=== PATIENT | male | born 1985 | race African-American/Black ===

== ENCOUNTER 2017-06-28 14:27 | Emergency (ER) | payer OTHER ==
[~2017-06-28] VITALS: Ht 172.7 cm; Wt 55.0 kg
[~2017-06-28 14:27] MED LIST: DICL50 PO; IBUP800T23 PO; SULF-154 PO
[2017-06-28 15:03] VITALS: BP 164/105; PULSE 106; RESP 16; TEMP 97.8; O2SAT 97
--- NOTE | 2017-06-28 15:26 | PD ---
HPI Chief Complaint: Psychiatric Symptoms Time Seen by Provider: 15:20 Travel History International Travel<30 days: No Contact w/Intl Traveler<30days: No Traveled to known affect area: No History of Present Illness HPI 31-year-old male presents to the emergency department under Smith act for psychiatric evaluation. Patient states that he used Kaylyn in oral form. He believes it may have been laced with Flakka. He states he is very paranoid right now. He does not want to hurt himself or anybody else but he is scared that somebody is after him. He denies any recent illnesses. Denies any significant medical history. Has no other symptoms to report. PFSH Past Medical History Hx Anticoagulant Therapy: No Cardiovascular Problems: No Chemotherapy: No Cerebrovascular Accident: No Diabetes: No Respiratory: No ?: Not Past Surgical History Hysterectomy: No Social History Alcohol Use: Yes Tobacco Use: Yes (1/2 PACK DAY) Substance Use: No Allergies-Medications (Allergen,Severity, Reaction): Coded Allergies: No Known Allergies (Verified Adverse Reaction, Unknown, 06/28/17) Reported Meds & Prescriptions Reported Meds & Active Scripts Active Ibuprofen 800 Mg Tab 800 Mg PO TID PRN Voltaren (Diclofenac Sodium) 50 Mg Tabec 50 Mg PO TID Septra Ds (Trimethoprim/Sulfamethoxazole) Tab 1 Tab PO BID Review of Systems Except as stated in HPI: all other systems reviewed are Neg Physical Exam Narrative GENERAL: Thin male patient, ambulatory with bizarre affect but in no acute distress. SKIN: Focused skin assessment warm/dry. HEAD: Atraumatic. Normocephalic. EYES: Pupils equal and round. No scleral icterus. No injection or drainage. ENT: No nasal bleeding or discharge. Mucous membranes pink and moist. NECK: Trachea midline. No JVD. CARDIOVASCULAR: Tachycardic rate and rhythm. No murmur appreciated. RESPIRATORY: No accessory muscle use. Clear to auscultation. Breath sounds equal bilaterally. GASTROINTESTINAL: Abdomen soft, non-tender, nondistended. Hepatic and splenic margins not palpable. MUSCULOSKELETAL: No obvious deformities. No clubbing. No cyanosis. No edema. NEUROLOGICAL: Awake and alert. No obvious cranial nerve deficits. Motor grossly within normal limits. Normal speech. Data Data Last Documented VS Vital Signs Date Time Temp Pulse Resp B/P (MAP) Pulse Ox O2 Delivery O2 Flow Rate FiO2 2/24/18 17:04 96.8 87 14 133/75 (94) 99 Room Air Orders Orders Complete Blood Count With Diff (06/28/17 15:00) Comprehensive Metabolic Panel (06/28/17 15:00) Psych Screen (06/28/17 15:00) Drug Screen, Random Urine (06/28/17 15:00) Lorazepam Inj (Ativan Inj) (06/28/17 15:30) Restraints Violent (06/28/17 16:10) Diphenhydramine Inj (Benadryl Inj) (06/28/17 16:15) Diet Regular Basic (06/28/17 Dinner) Labs Laboratory Tests Test 06/28/17 14:58 White Blood Count 14.5 TH/MM3 Red Blood Count 5.35 MIL/MM3 Hemoglobin 16.2 GM/DL Hematocrit 47.7 % Mean Corpuscular Volume 89.0 FL Mean Corpuscular Hemoglobin 30.3 PG Mean Corpuscular Hemoglobin Concent 34.1 % Red Cell Distribution Width 13.6 % Platelet Count 168 TH/MM3 Mean Platelet Volume 10.5 FL Neutrophils (%) (Auto) 92.1 % Lymphocytes (%) (Auto) 2.5 % Monocytes (%) (Auto) 5.3 % Eosinophils (%) (Auto) 0.0 % Basophils (%) (Auto) 0.1 % Neutrophils # (Auto) 13.4 TH/MM3 Lymphocytes # (Auto) 0.4 TH/MM3 Monocytes # (Auto) 0.8 TH/MM3 Eosinophils # (Auto) 0.0 TH/MM3 Basophils # (Auto) 0.0 TH/MM3 CBC Comment DIFF FINAL Differential Comment Blood Urea Nitrogen 23 MG/DL Creatinine 1.33 MG/DL Random Glucose 144 MG/DL Total Protein 8.8 GM/DL Albumin 4.5 GM/DL Calcium Level 9.8 MG/DL Alkaline Phosphatase 126 U/L Aspartate Amino Transf (AST/SGOT) 27 U/L Alanine Aminotransferase (ALT/SGPT) 16 U/L Total Bilirubin 0.6 MG/DL Sodium Level 138 MEQ/L Potassium Level 3.6 MEQ/L Chloride Level 104 MEQ/L Carbon Dioxide Level 25.4 MEQ/L Anion Gap 9 MEQ/L Estimat Glomerular Filtration Rate 76 ML/MIN MDM Medical Decision Making Medical Screen Exam Complete: Yes Emergency Medical Condition: Yes Medical Record Reviewed: Yes Differential Diagnosis Polysubstance abuse versus acute psychosis versus mood disorder versus personality disorder Narrative Course 31-year-old male presents to emergency department under Smith act for psychiatric evaluation. Patient is cooperative however he is paranoid and is verbalizing concerned that somebody is after him. He did attempt to run out of the emergency department from these individuals that do not really exist. Patient was moved to the psychiatric pod. He was given Ativan prior to transfer. Lab work is still pending. 1605 I am contacted by staff and requested to place restraints on the patient as he is becoming aggressive toward staff and his risk of harming himself and others. Lab work is still not complete. I am uncertain if patient's renal function. I'll add 50 mg Benadryl IM to help medicate the patient and hopefully calm him down. Ocyk-in-[id number] exam completed at 1640 Patient demonstrates the need for violent restraints, demonstrating a risk of harming himself and others restraints are noted in place. Distal extremities remain neurovascularly intact. I have discussed removal criteria with the patient. He verbalizes understanding. Lab work has been reviewed. Patient does have some renal insufficiency. His venous 23. He is encouraged to take by mouth liquids. Laboratory Tests Test 06/28/17 14:58 White Blood Count 14.5 TH/MM3 Red Blood Count 5.35 MIL/MM3 Hemoglobin 16.2 GM/DL Hematocrit 47.7 % Mean Corpuscular Volume 89.0 FL Mean Corpuscular Hemoglobin 30.3 PG Mean Corpuscular Hemoglobin Concent 34.1 % Red Cell Distribution Width 13.6 % Platelet Count 168 TH/MM3 Mean Platelet Volume 10.5 FL Neutrophils (%) (Auto) 92.1 % Lymphocytes (%) (Auto) 2.5 % Monocytes (%) (Auto) 5.3 % Eosinophils (%) (Auto) 0.0 % Basophils (%) (Auto) 0.1 % Neutrophils # (Auto) 13.4 TH/MM3 Lymphocytes # (Auto) 0.4 TH/MM3 Monocytes # (Auto) 0.8 TH/MM3 Eosinophils # (Auto) 0.0 TH/MM3 Basophils # (Auto) 0.0 TH/MM3 CBC Comment DIFF FINAL Differential Comment Blood Urea Nitrogen 23 MG/DL Creatinine 1.33 MG/DL Random Glucose 144 MG/DL Total Protein 8.8 GM/DL Albumin 4.5 GM/DL Calcium Level 9.8 MG/DL Alkaline Phosphatase 126 U/L Aspartate Amino Transf (AST/SGOT) 27 U/L Alanine Aminotransferase (ALT/SGPT) 16 U/L Total Bilirubin 0.6 MG/DL Sodium Level 138 MEQ/L Potassium Level 3.6 MEQ/L Chloride Level 104 MEQ/L Carbon Dioxide Level 25.4 MEQ/L Anion Gap 9 MEQ/L Estimat Glomerular Filtration Rate 76 ML/MIN Patient is medically cleared to undergo psychiatric screening for further evaluation and disposition. Diagnosis Primary Impression: Acute psychosis Additional Impression: Polysubstance abuse Condition: Stable Jeanette Martinez Jun 28, 2017 15:26
[2017-06-28] MEDS ORDERED: LORazepam 2 MG/ML VIAL IM ONE (15:30)
[2017-06-28 15:37] LABS: AUTOMATED NEUTROPHIL # 13.4 TH/MM3 (1.8-7.7); BASOPHIL % 0.1 % (0.0-2.0); HEMATOCRIT 47.7 % (39.0-51.0); HEMOGLOBIN 16.2 GM/DL (13.0-17.0); LYMPH % 2.5 % (9.0-44.0); LYMPHOCYTE # 0.4 TH/MM3 (1.0-4.8); MEAN CORPUSCULAR HEMOGLOBIN 30.3 PG (27.0-34.0); MEAN CORPUSCULAR HGB CONC 34.1 % (32.0-36.0); MEAN PLATELET VOLUME 10.5 FL (7.0-11.0); MONO % 5.3 % (0.0-8.0); MONOCYTE # 0.8 TH/MM3 (0-0.9); NEUT % 92.1 % (16.0-70.0); PLATELET COUNT 168 TH/MM3 (150-450); RED BLOOD COUNT 5.35 MIL/MM3 (4.50-5.90); RED CELL DISTRIBUTION WIDTH 13.6 % (11.6-17.2); WHITE BLOOD COUNT 14.5 TH/MM3 (4.0-11.0)
[2017-06-28 15:57] VITALS: BP 156/111; PULSE 115; RESP 18; TEMP 97.4; O2SAT 97
[2017-06-28 15:57] LABS: ALKALINE PHOSPHATASE 126 U/L (45-117); TOTAL BILIRUBIN ADULT 0.6 MG/DL (0.2-1.0); TOTAL PROTEIN 8.8 GM/DL (6.4-8.2)
[2017-06-28 16:06] LABS: ALBUMIN 4.5 GM/DL (3.4-5.0); ALT (GPT) 16 U/L (12-78); AST (GOT) 27 U/L (15-37); BICARBONATE 25.4 MEQ/L (21.0-32.0); BLOOD UREA NITROGEN 23 MG/DL (7-18); CALCIUM 9.8 MG/DL (8.5-10.1); CHLORIDE 104 MEQ/L (98-107); CREATININE 1.33 MG/DL (0.60-1.30); GLOMERULAR FILTRATION RATE 76 ML/MIN (>89); GLUCOSE,RANDOM 144 MG/DL (74-106); SODIUM (NA) 138 MEQ/L (136-145)
[2017-06-28] MEDS ORDERED: diphenhydrAMINE HCL 50 MG/ML VIAL IM ONE (16:15)
[2017-06-28 17:04] VITALS: BP 133/75; PULSE 87; RESP 14; TEMP 96.8; O2SAT 99
[2017-06-28 22:53] VITALS: BP 109/63; PULSE 78; RESP 19; TEMP 98.6; O2SAT 100
[2017-06-29 03:12] VITALS: BP 130/57; PULSE 100; RESP 18; TEMP 98.2; O2SAT 99
[2017-06-29] MEDS ORDERED: LORazepam 2 MG/ML VIAL IM ONE (03:45)
[2017-06-29 06:57] VITALS: BP 112/58; PULSE 55; RESP 19; TEMP 98.4; O2SAT 99
--- NOTE | 2017-06-29 08:14 | HHI.PR ---
Subjective Remarks Endeavored to see pt for psychiatric evaluation. Per RN, patient agitated overnight and received Ativan IM. This morning, patient is sedated and unable to participate in psychiatric interview. He is breathing easily and in no acute distress. BA remains in place pending reassessment. Objective Labs Test 06/28/17 14:58 06/29/17 04:35 White Blood Count 14.5 TH/MM3 Red Blood Count 5.35 MIL/MM3 Hemoglobin 16.2 GM/DL Hematocrit 47.7 % Mean Corpuscular Volume 89.0 FL Mean Corpuscular Hemoglobin 30.3 PG Mean Corpuscular Hemoglobin Concent 34.1 % Red Cell Distribution Width 13.6 % Platelet Count 168 TH/MM3 Mean Platelet Volume 10.5 FL Neutrophils (%) (Auto) 92.1 % Lymphocytes (%) (Auto) 2.5 % Monocytes (%) (Auto) 5.3 % Eosinophils (%) (Auto) 0.0 % Basophils (%) (Auto) 0.1 % Neutrophils # (Auto) 13.4 TH/MM3 Lymphocytes # (Auto) 0.4 TH/MM3 Monocytes # (Auto) 0.8 TH/MM3 Eosinophils # (Auto) 0.0 TH/MM3 Basophils # (Auto) 0.0 TH/MM3 CBC Comment DIFF FINAL Differential Comment Blood Urea Nitrogen 23 MG/DL Creatinine 1.33 MG/DL Random Glucose 144 MG/DL Total Protein 8.8 GM/DL Albumin 4.5 GM/DL Calcium Level 9.8 MG/DL Alkaline Phosphatase 126 U/L Aspartate Amino Transf (AST/SGOT) 27 U/L Alanine Aminotransferase (ALT/SGPT) 16 U/L Total Bilirubin 0.6 MG/DL Sodium Level 138 MEQ/L Potassium Level 3.6 MEQ/L Chloride Level 104 MEQ/L Carbon Dioxide Level 25.4 MEQ/L Anion Gap 9 MEQ/L Estimat Glomerular Filtration Rate 76 ML/MIN Urine Opiates Screen NEG Urine Barbiturates Screen NEG Urine Amphetamines Screen NEG Urine Benzodiazepines Screen NEG Urine Cocaine Screen POS Urine Cannabinoids Screen POS Vitals/IOs Vital Signs Date Time Temp Pulse Resp B/P (MAP) Pulse Ox O2 Delivery O2 Flow Rate FiO2 06/29/17 06:57 98.4 55 19 112/58 (76) 99 Room Air Assessment & Plan Problem List: (1) Encounter for psychiatric assessment ICD Codes: Z76.89 - Persons encountering health services in other specified circumstances Assessment & Plan Estimated LOS: days Hardik Boateng MD Jun 29, 2017 08:14
[2017-06-29 11:35] VITALS: BP 117/70; PULSE 85; RESP 16; O2SAT 99
[2017-06-29 15:06] VITALS: BP 110/71; PULSE 84; RESP 16; O2SAT 98
[2017-06-29 18:43] VITALS: BP 107/61; PULSE 73; RESP 18; O2SAT 100
[2017-06-29 22:27] VITALS: RESP 18
[2017-06-30 06:16] VITALS: BP 137/59; PULSE 78; RESP 18; TEMP 98.2; O2SAT 100
--- NOTE | 2017-06-30 10:22 | PD ---
History of Present Illness Chief Complaint: Psychiatric Symptoms Time Seen by Provider: 10:00 Travel History International Travel<30 Days: No Contact w/Intl Traveler<30days: No Known affected area: No Legal Status Legal Status: Smith Act Smith Act Comment: Signed by [facility] Officer Ky Sandhu #[id number]. History of Present Illness: History of Present Illness HPI 31-year-old male with no previous psychiatric history and history of substance use disorder who presents to the emergency department under Smith act initiated by law enforcement. The Smith act alleges that the patient was acting in a strange manner and that he was afraid that somebody was after him. Patient admitted to ED staff states that he used Kaylyn in oral form and that he believes it may have been laced with Flakka. Patient required restraints on arrival to the ED due to him becoming aggressive towards staff. He also required ETO. The patient was monitored for extended period of time in the ED and slept for a majority of this time. Electronic medical record is reviewed. No previous contact with [facility] psychiatry. Patient is seen. Tk, case advocate present. Current toxicology is positive for cocaine and cannabinoids. Current toxicology is positive for cocaine and cannabinoids. Patient is alert, oriented, calm and cooperative.No psychosis and no chandler. No objective clinical symptoms of depression or anxiety His speech is clear, logical and goal-directed. He states" I took a drug I thought it was Kaylyn and then I freaked out. I feel fine now and I have to go to work." There is no suicidal or homicidal ideation, intent or plan. PFSH Past Medical History Medical History: Unable to Obtain Hx Anticoagulant Therapy: No Cardiovascular Problems: No Chemotherapy: No Cerebrovascular Accident: No Diabetes: No Respiratory: No ?: Not Past Surgical History Surgical History: Unable to Obtain Hysterectomy: No Psychiatric History Psychiatric History Hx Psychiatric Treatment: Patient denies psychiatric tx. No previous smith act. No hx of suicidal atempts. History of Inpatient Treatment: No Guns or firearms in home: No Social History Single male, originally from [place], lives with girlfriend. Has 3 children. Works in the food service team member industry. Hx Alcohol Use: Yes Hx Tobacco Use: Yes (1/2 PACK DAY) Hx Substance Use: Yes (Kaylyn & Flakka per pt.) Substance Use Type: Marijuana, Nicotine/Cigarettes, Cocaine, Other Hx of Substance Use Treatment: No Allergies-Medications (Allergen,Severity, Reaction): Coded Allergies: No Known Allergies (Verified Adverse Reaction, Unknown, 06/28/17) Reported Meds & Prescriptions Reported Meds & Active Scripts Active Review of Systems Psychiatric: DENIES: Anxiety, Confusion, Mood changes, Depression, Hallucinations, Agitation, Suicidal Ideation, Homicidal Ideation, Delusions Except as stated in HPI: all other systems reviewed are Neg Mental Status Examination Appearance: Appropriate, Disheveled Consciousness: Alert Orientation: x4 Motor Activity: Normal gait Speech: Unremarkable Language: Adequate Fund of Knowledge: Adequate Attention and Concentration: Adequate Memory: Unremarkable Mood: Appropriate Affect: Appropriate Thought Process & Associations: Intact, Logical, Goal directed Thought Content: Appropriate Hallucination Type: None Delusion Type: None Suicidal Ideation: No Suicidal Plan: No Suicidal Intention: No Homicidal Ideation: No Homicidal Plan: No Homicidal Intention: No Insight: Fair Judgment: Adequate MDM Medical Decision Making Medical Record Reviewed: Yes Assessment/Plan 31-year-old male with no previous psychiatric history who while under the influence of an unknown substance suspected to be Flakka became paranoid and was placed under Smith act by law enforcement. The patient presented to the ED agitated and verbalizing paranoid thoughts that he believed someone was after him. Patient required ETO. He was monitored here for extended period of time and was allowed to sleep. This morning the patient presents no symptoms of psychosis, no chandler, no paranoia, no suicidal or homicidal ideation. He is requesting to be discharged as he is worried over his job. At this time he presents no criteria under the Smith act and presents no evidence of unstable mental illness as defined under the Smith act. He is provided psychoeducation. Lift BA. Psychiatrically clear for discharge from ED. Orders Orders Diet Regular Basic (06/29/17 Lunch) Diet Regular Basic (06/29/17 Dinner) Diet Regular Basic (06/30/17 Breakfast) Results Vital Signs Date Time Temp Pulse Resp B/P (MAP) Pulse Ox O2 Delivery O2 Flow Rate FiO2 06/30/17 06:16 98.2 78 18 137/59 (85) 100 Room Air 06/29/17 22:27 18 06/29/17 18:43 73 18 107/61 (76) 100 Room Air 06/29/17 15:06 84 16 110/71 (84) 98 Room Air 06/29/17 11:35 85 16 117/70 (86) 99 Room Air Diagnosis Primary Impression: Substance-induced psychotic disorder Additional Impression: Polysubstance abuse Psychiatrically Cleared: Yes Med/ Other Pt Specific Info: No Meds Exist/No RX given Disposition: 01 DISCHARGE HOME Condition: Stable Problem Qualifiers Caro Hooper Jun 30, 2017 10:22
--- NOTE | 2017-06-30 11:04 | PD ---
Physical Exam Date Seen by Provider: Jun 30, 2017 Time Seen by Provider: 11:01 Data Data Last Documented VS Vital Signs Date Time Temp Pulse Resp B/P (MAP) Pulse Ox O2 Delivery O2 Flow Rate FiO2 06/30/17 06:16 98.2 78 18 137/59 (85) 100 Room Air Orders Orders Complete Blood Count With Diff (06/28/17 15:00) Comprehensive Metabolic Panel (06/28/17 15:00) Psych Screen (06/28/17 15:00) Drug Screen, Random Urine (06/28/17 15:00) Lorazepam Inj (Ativan Inj) (06/28/17 15:30) Restraints Violent (06/28/17 16:10) Diphenhydramine Inj (Benadryl Inj) (06/28/17 16:15) Diet Regular Basic (06/28/17 Dinner) Diet Regular Basic (06/29/17 Breakfast) Lorazepam Inj (Ativan Inj) (06/29/17 03:45) Diet Regular Basic (06/29/17 Lunch) Diet Regular Basic (06/29/17 Dinner) Diet Regular Basic (06/30/17 Breakfast) Ed Discharge Order (06/30/17 10:49) Labs Laboratory Tests Test 06/28/17 14:58 06/29/17 04:35 White Blood Count 14.5 TH/MM3 Red Blood Count 5.35 MIL/MM3 Hemoglobin 16.2 GM/DL Hematocrit 47.7 % Mean Corpuscular Volume 89.0 FL Mean Corpuscular Hemoglobin 30.3 PG Mean Corpuscular Hemoglobin Concent 34.1 % Red Cell Distribution Width 13.6 % Platelet Count 168 TH/MM3 Mean Platelet Volume 10.5 FL Neutrophils (%) (Auto) 92.1 % Lymphocytes (%) (Auto) 2.5 % Monocytes (%) (Auto) 5.3 % Eosinophils (%) (Auto) 0.0 % Basophils (%) (Auto) 0.1 % Neutrophils # (Auto) 13.4 TH/MM3 Lymphocytes # (Auto) 0.4 TH/MM3 Monocytes # (Auto) 0.8 TH/MM3 Eosinophils # (Auto) 0.0 TH/MM3 Basophils # (Auto) 0.0 TH/MM3 CBC Comment DIFF FINAL Differential Comment Blood Urea Nitrogen 23 MG/DL Creatinine 1.33 MG/DL Random Glucose 144 MG/DL Total Protein 8.8 GM/DL Albumin 4.5 GM/DL Calcium Level 9.8 MG/DL Alkaline Phosphatase 126 U/L Aspartate Amino Transf (AST/SGOT) 27 U/L Alanine Aminotransferase (ALT/SGPT) 16 U/L Total Bilirubin 0.6 MG/DL Sodium Level 138 MEQ/L Potassium Level 3.6 MEQ/L Chloride Level 104 MEQ/L Carbon Dioxide Level 25.4 MEQ/L Anion Gap 9 MEQ/L Estimat Glomerular Filtration Rate 76 ML/MIN Urine Opiates Screen NEG Urine Barbiturates Screen NEG Urine Amphetamines Screen NEG Urine Benzodiazepines Screen NEG Urine Cocaine Screen POS Urine Cannabinoids Screen POS MDM Medical Record Reviewed: Yes Supervised Visit with CORRIE: No Narrative Course Patient initially presented intoxicated under a Smith act for paranoia. Labs reviewed. CBC shows mild leukocytosis, likely secondary to drug intoxication. CMP is remarkable for elevated BUN and creatinine. Patient encouraged to hydrate. Vital signs stable. He was seen by psychiatric nurse practitioner in Smith act was lifted. He is stable for outpatient follow-up. Diagnosis Primary Impression: Substance-induced psychotic disorder Additional Impressions: Polysubstance abuse Elevated serum creatinine Patient Instructions: General Instructions Departure Forms: Tests/Procedures Additional Instruction: Follow up with Telly Topete as needed for further treatment. Return to ED if needed. Disposition: 01 DISCHARGE HOME Condition: Stable Amelia Hdez Jun 30, 2017 11:04
== END 2017-06-30 11:28 | disposition home or self-care (01) ==
LOC: NEDAMB 14:27 → NEPJ 06-30 11:28
DX: F19.959 Other psychoactive substance use, unspecified with psychoactive substance-induced psychotic disorder, unspecified (principal); R79.89 Other specified abnormal findings of blood chemistry; F17.200 Nicotine dependence, unspecified, uncomplicated; Z79.899 Other long term (current) drug therapy
CPT/HCPCS: 80053; 80307; 85025; 96372; 99285; J1200; J2060